=== PATIENT | male | born 1965 | race Caucasian/White ===

== ENCOUNTER 2024-01-15 11:54 | Emergency (ER) | payer OTHER ==
--- OUTSIDE RECORDS SUMMARY | 2024-01-15 11:57 | XMS REPORT | Continuity of Care Document ---
Author Name Unknown Address [address] [place] [address] [address] [place] [address] [facility] thconnect Address [address] [facility] [address] [place] [address] Care Team Providers Care Desktop Support Manager Name Role Phone Unavailable Unavailable Unavailable Immunizations Ordered Immunization Name Filled Immunization Name Date Status Comments Source Pfizer COVID-19 Vaccine Pfizer COVID-19 Vaccine 2021-05-14 00:00:00 Completed Moderna COVID-19 Vaccine Moderna COVID-19 Vaccine 2020-11-13 00:00:00 Completed Moderna COVID-19 Vaccine Moderna COVID-19 Vaccine 2020-10-08 00:00:00 Completed Encounters Start Date/Time End Date/Time Encounter Type Admission Type Attending [facility] Facility Care Department Encounter ID Source 2021-05-14 00:00:00 2021-05-14 00:00:00 Outpatient [facility] [id number] [facility] 2020-11-13 00:00:00 2020-11-13 00:00:00 Outpatient [facility] [id number] [facility] 2020-10-08 00:00:00 2020-10-08 00:00:00 Outpatient [facility] [id number] [facility]
[2024-01-15] MEDS ORDERED: ONDANSETRON 4 MG/2 ML VIAL ONE (12:38)
[2024-01-15] MEDS ORDERED: MORPHINE 4 MG/ML SYR ONE ×2 (12:38→14:40)
--- NOTE | 2024-01-15 13:34 | RAD REPORT ---
EXAM DESCRIPTION: RAD - Clavicle Left - 01/15/2024 1:09 pm CLINICAL HISTORY: Left shoulder pain FINDINGS: Moderately to markedly displaced fracture mid left clavicle No dislocation
--- NOTE | 2024-01-15 13:34 | RAD REPORT ---
EXAM DESCRIPTION: RAD - Shoulder Left 2 View - 01/15/2024 1:09 pm CLINICAL HISTORY: Left shoulder pain status post fall FINDINGS: Moderately to markedly displaced fracture mid left clavicle No dislocation
--- NOTE | 2024-01-15 14:22 | ER ---
Nurse's Notes [facility] Name: Austin Das Age: 58 yrs Sex: Male : 1965 Arrival Date: 01/15/2024 Time: 11:54 Bed 10 Private MD: Diagnosis: Fracture of clavicle Presentation: 01/14 12:22 Initial Sepsis Screen: Does the patient meet any 2 criteria? No. Patient's initial mb9 sepsis screen is negative. Does the patient have a suspected source of infection? No. Patient's initial sepsis screen is negative. Risk Assessment: Do you want to hurt yourself or someone else? Patient reports no desire to harm self or others. Onset of symptoms was January 15, 2024. 12:22 Acuity: KAREL 3 mb9 12:25 Chief complaint: Patient states: "I slipped at the boat deck today and feel like mb9 dislocated my left shoulder. I can't move it.". Coronavirus screen: At this time, the client does not indicate any symptoms associated with coronavirus-19. Ebola Screen: No symptoms or risks identified at this time. 12:25 Method Of Arrival: Wheelchair mb9 Triage Assessment: 12:27 General: Appears uncomfortable, Behavior is cooperative. Pain: Complains of pain in mb9 left arm. EENT: No signs and/or symptoms were reported regarding the EENT system. Neuro: Gonzalez Agitation-Sedation Scale (RASS): 0 - Alert and Calm Level of Consciousness is awake, alert, obeys commands, Oriented to person, place, time, situation, Appropriate for age. Cardiovascular: Patient's skin is warm and dry. Respiratory: Airway is patent Respiratory effort is even, unlabored, Respiratory pattern is regular, symmetrical. GI: No signs and/or symptoms were reported involving the gastrointestinal system. : No signs and/or symptoms were reported regarding the genitourinary system. Derm: Skin is pink, warm \\T\\ dry. Musculoskeletal: Range of motion: limited in left shoulder. Historical: - Allergies: 12:26 No Known Allergies; mb9 - Home Meds: 12:26 None [Active]; mb9 - PMHx: 12:26 Hypertensive disorder; mb9 - PSHx: 12:26 None; mb9 - Immunization history:: Adult Immunizations up to date. - Infectious Disease History:: Denies. - Social history:: Smoking status: Patient denies any tobacco usage or history of. - Family history:: not pertinent. Screenin:20 [facility] ED Fall Risk Assessment (Adult) History of falling in the last 3 months, mb9 including since admission Yes- single mechanical fall (1 pt) Confusion or Disorientation No (0 pts) Intoxicated or Sedated No (0 pts) Impaired Gait No (0 pts) Mobility Assist Device Used No (0 pt) Altered Elimination No (0 pt) Score/Fall Risk Level 3 or more points = High Risk Oriented to surroundings, Maintained a safe environment, Educated pt \\T\\ family on fall prevention, incl call for assistance when getting out of bed, Assessed \\T\\ reinforced patient's understanding of fall precautions. Abuse screen: Denies threats or abuse. Nutritional screening: No deficits noted. Tuberculosis screening: No symptoms or risk factors identified. Assessment: 14:30 Reassessment: Patient and/or family updated on plan of care and expected duration. Pain tl4 level reassessed. Patient is alert, oriented x 3, equal unlabored respirations, skin warm/dry/pink. Pt denies any needs at this time. Patient states symptoms have improved. 14:55 Reassessment: Extended time to discharge due to administration of IV medication. tl4 Vital Signs: 12:25 BP 140 / 81; Pulse 88; Resp 18; Temp 98; Pulse Ox 100% on R/A; Weight 92.99 kg; Height mb9 6 ft. 2 in. ; Pain 10/10; 14:45 BP 127 / 58; Pulse 78; Resp 16; Temp 97.9(O); Pulse Ox 99% on R/A; Pain 6/10; tl4 12:25 Body Mass Index 26.32 (92.99 kg, 187.96 cm) mb9 12:25 Pain Scale: Adult mb9 14:45 Pain Scale: Adult tl4 ED Course: 11:55 Patient arrived in ED. mr 12:18 Arm band placed on Patient placed in an exam room, on a stretcher. ll1 12:20 Hilary Cavazos, TEODORA is Primary Nurse. mb9 12:20 Placed in gown. Bed in low position. Call light in reach. Side rails up X 1. Provided mb9 Education on: press call light if needing anything. Client placed on continuous cardiac and pulse oximetry monitoring. NIBP monitoring applied. 12:23 Triage completed. mb9 12:29 Rodríguez Chavira MD is Attending Physician. rt 13:11 Shoulder Left (2 View) XRAY In Process Unspecified. EDMS 13:11 Clavicle Left XRAY In Process Unspecified. EDMS 14:19 Jaleel Manzano MD is Referral Physician. rt 14:35 Williams Rand RN is Primary Nurse. tl4 14:53 No provider procedures requiring assistance completed. IV discontinued, intact, tl4 bleeding controlled, No redness/swelling at site. Pressure dressing applied. Administered Medications: 12:40 Drug: Ondansetron IVP 4 mg IVP once; over 2 minutes Route: IVP; Site: right antecubital;mb9 14:51 Follow up: Response: No adverse reaction tl4 12:41 Drug: morphine IVP or IV 4 mg IVP once over 4 mins Route: IVP; Infused Over: 4 mins; mb9 Site: right antecubital; 14:51 Follow up: Response: No adverse reaction; Pain is decreased tl4 14:35 Drug: morphine IVP or IV 2 mg IVP once over 4 mins Route: IVP; Infused Over: 4 mins; tl4 Site: right antecubital; 14:51 Follow up: Response: No adverse reaction; Pain is decreased tl4 14:40 Drug: Ketorolac IVP 15 mg IVP once Route: IVP; Site: right antecubital; tl4 14:51 Follow up: Response: No adverse reaction; Pain is decreased tl4 Medication: 12:20 VIS not applicable for this client. mb9 Outcome: 14:21 Discharge ordered by . rt 14:53 Discharged to home ambulatory, with family, tl4 14:53 Condition: stable 14:53 Discharge instructions given to patient, Instructed on discharge instructions, follow up and referral plans. medication usage, sling use Demonstrated understanding of instructions, follow-up care, medications, sling use Prescriptions given X 1, 14:55 Patient left the ED. tl4 Signatures: Dispatcher [employer] EDNJ BanksHilary goodman, Reg Reg Kelly Chambers RN RN ll1 Hilary Cavazos RN RN mb9 Rodríguez Chavira MD MD rt Williams Rand RN RN tl4 Corrections: (The following items were deleted from the chart) 12:26 PMHx: None; mb9 mb9
--- NOTE | 2024-01-15 14:22 | EDPHYS ---
Physician Documentation [facility] Name: Austin Das Age: 58 yrs Sex: Male : 1965 Arrival Date: 01/15/2024 Time: 11:54 Bed 10 Private MD: ED Physician Rodríguez Chavira HPI: 01/14 14:51 This 58 yrs old Male presents to ER via Wheelchair with complaints of Fall Injury, rt Dislocated shoulder. 14:51 Patient presents to the ED with slip and fall onto his left shoulder. Patient states rt that he believes that his shoulder is dislocated. Reports pain to that area. Denies hitting his head, other trauma. Denies any syncopal symptoms. Denies other acute complaints, symptoms are aching nature, nonradiating, moderate severity, no other aggravating or alleviating factors.. Historical: - Allergies: 12:26 No Known Allergies; mb9 - Home Meds: 12:26 None [Active]; mb9 - PMHx: 12:26 Hypertensive disorder; mb9 - PSHx: 12:26 None; mb9 - Immunization history:: Adult Immunizations up to date. - Infectious Disease History:: Denies. - Social history:: Smoking status: Patient denies any tobacco usage or history of. - Family history:: not pertinent. ROS: 14:51 Constitutional: Negative for fever, chills, and weight loss, Neck: Negative for injury, rt pain, and swelling, Abdomen/GI: Negative for abdominal pain, nausea, vomiting, diarrhea, and constipation, Back: Negative for injury and pain, Skin: Negative for injury, rash, and discoloration, Neuro: Negative for headache, weakness, numbness, tingling, and seizure, 14:51 MS/extremity: Positive for injury or acute deformity, pain, Exam: 14:54 Constitutional: This is a well developed, well nourished patient who is awake, alert, rt and in no acute distress. Head/Face: Normocephalic, atraumatic. Chest/axilla: Normal chest wall appearance and motion. Nontender with no deformity. No lesions are appreciated. Cardiovascular: Regular rate and rhythm with a normal S1 and S2. No gallops, murmurs, or rubs. Normal PMI, no JVD. No pulse deficits. Respiratory: Lungs have equal breath sounds bilaterally, clear to auscultation and percussion. No rales, rhonchi or wheezes noted. No increased work of breathing, no retractions or nasal flaring. Skin: Warm, dry with normal turgor. Normal color with no rashes, no lesions, and no evidence of cellulitis. 14:54 Musculoskeletal/extremity: Tenderness to the left shoulder, no obvious deformity, range of motion limited, pulses, motor, sensation intact. Vital Signs: 12:25 BP 140 / 81; Pulse 88; Resp 18; Temp 98; Pulse Ox 100% on R/A; Weight 92.99 kg; Height mb9 6 ft. 2 in. ; Pain 10/10; 14:45 BP 127 / 58; Pulse 78; Resp 16; Temp 97.9(O); Pulse Ox 99% on R/A; Pain 6/10; tl4 12:25 Body Mass Index 26.32 (92.99 kg, 187.96 cm) mb9 12:25 Pain Scale: Adult mb9 14:45 Pain Scale: Adult tl4 MDM: 12:31 Patient medically screened. rt 14:54 Differential diagnosis: Fracture, dislocation. Data reviewed: vital signs, nurses rt notes, radiologic studies. I considered the following discharge prescriptions or medication management in the emergency department Medications were administered in the Emergency Department. See MAR. Independent interpretation of the following test(s) in the Emergency Department X-Ray: My interpretation is Clavicular fracture seen on interpretation of x-ray images. Care significantly affected by the following chronic conditions: Hypertension. Counseling: I had a detailed discussion with the patient and/or guardian regarding the historical points, exam findings, and any diagnostic results supporting the discharge/admit diagnosis, radiology results, the need for outpatient follow up. Response to treatment: the patient's symptoms have mildly improved after treatment. 01/14 12:35 Order name: Shoulder Left (2 View) XRAY; Complete Time: 13:34 rt 01/14 13:01 Order name: Clavicle Left XRAY; Complete Time: 13:34 rt Administered Medications: 12:40 Drug: Ondansetron IVP 4 mg IVP once; over 2 minutes Route: IVP; Site: right antecubital;mb9 14:51 Follow up: Response: No adverse reaction tl4 12:41 Drug: morphine IVP or IV 4 mg IVP once over 4 mins Route: IVP; Infused Over: 4 mins; mb9 Site: right antecubital; 14:51 Follow up: Response: No adverse reaction; Pain is decreased tl4 14:35 Drug: morphine IVP or IV 2 mg IVP once over 4 mins Route: IVP; Infused Over: 4 mins; tl4 Site: right antecubital; 14:51 Follow up: Response: No adverse reaction; Pain is decreased tl4 14:40 Drug: Ketorolac IVP 15 mg IVP once Route: IVP; Site: right antecubital; tl4 14:51 Follow up: Response: No adverse reaction; Pain is decreased tl4 Disposition Summary: 01/15/24 14:21 Discharge Ordered Notes: Location: Home rt Problem: new rt Symptoms: have improved rt Condition: Stable rt Diagnosis - Fracture of clavicle rt Followup: rt - With: Jaleel Manzano MD - When: 2 - 3 days - Reason: Discharge Instructions: - Discharge Summary Sheet rt - Clavicle Fracture rt Forms: - Medication Reconciliation Form rt - Antibiotic Education rt - Prescription Opioid Use rt - Patient Portal Instructions rt - Leadership Thank You Letter rt Prescriptions: - acetaminophen-codeine 300-30 mg Oral tablet - take 1 tablet ORAL route every 6 hours as needed for pain; 18 tablet; Refills: rt 0, Product Selection Permitted Signatures: Dispatcher [employer] Hilary Cervantes RN RN [id number] Rodríguez Chavira MD MD rt Williams Rand RN RN tl4 Corrections: (The following items were deleted from the chart) 12:26 12:26 PMHx: None; inga xiong 13:02 13:02 Clavicle Left+RAD.RAD.BRZ ordered. EDMS EDMS
[2024-01-15] MEDS ORDERED: KETOROLAC 30 MG/ML INJ ONE (14:39)
[2024-01-15 15:12] VITALS: BP 127/58; TEMP 97.9; O2SAT 99
== END 2024-01-15 14:55 | disposition home or self-care (01) ==
LOC: ER 11:54
DX: S42.002A Fracture of unspecified part of left clavicle, initial encounter for closed fracture (principal); I10 Essential (primary) hypertension; W01.0XXA Fall on same level from slipping, tripping and stumbling without subsequent striking against object, initial encounter
CPT/HCPCS: 73030; 73000; 96375; 96374; 99284; J2405